=== PATIENT | male | born 1980 | race Caucasian/White ===

== ENCOUNTER → 2020-09-13 | Outpatient (CLI) | payer BC | LOC: M OUTALCOH 07:54 | PROVIDERS: ATTEND Psychiatry & Neurology Psychiatry | DX: Z02.89 Encounter for other administrative examinations (principal) ==

== ENCOUNTER 2020-09-21 16:00 | Outpatient (RCR) | payer BC | END 2020-09-24 | LOC: M OUTALCOH 16:00 | PROVIDERS: ATTEND Psychiatry & Neurology Psychiatry | DX: Z03.89 Encounter for observation for other suspected diseases and conditions ruled out (principal) ==